=== PATIENT | male | born 1965 | race Caucasian/White ===

== ENCOUNTER 2019-08-23 12:34 | Emergency (ER) | payer OTHER ==
[~2019-08-23] VITALS: Wt 90.7 kg
[~2019-08-23 12:34] MED LIST: CIPROFLOXACIN500 MG PO; DIAZEPAM10 M1 PO; GABAPENTIN100 M2 PO; HYDROCODONE BIT1 T11 PO; LEVOFLOXACIN500 MG PO; PERCOCET 325 MG1 TA3 PO; PYRIDIUM200 MG PO; ROBAXIN750 MG PO; TRAMADOL HCL50 MG PO; VICODIN ES 7501 TAB PO
== END 2019-08-23 12:44 | disposition expired ==
LOC: ED 12:34
DX: I46.9 Cardiac arrest, cause unspecified (principal); I10 Essential (primary) hypertension; F17.200 Nicotine dependence, unspecified, uncomplicated